=== PATIENT | female | born 1980 | race African-American/Black ===

== ENCOUNTER 2019-09-07 14:38 | Emergency (ER) | payer MEDICAID ==
--- NOTE | 2019-09-07 17:22 | UC ---
Respiratory Complaint HPI - HPI Summary HPI Summary: 38 yo asthmatic with cough for a week, which is her second bout of respiratory illness within a month. Has increased use of albuterol to about 4 x per day for the past 2 days, with persistent hacking cough. - History of Current Complaint Chief Complaint: UCRespiratory Stated Complaint: RESP COMPLAINT Time Seen by Provider: 09/07/19 17:20 Hx Obtained From: Patient Hx Last Menstrual Period: 08/08/19 Onset/Duration: Gradual Onset, Lasting Days - 7 Timing: Intermittent Episodes Severity Initially: Mild Severity Currently: Moderate Pain Intensity: 0 Character: Cough: Productive Aggravating Factors: Exertion, Recumbent Position Alleviating Factors: Bronchodilator Associated Signs And Symptoms: Positive: Dyspnea, Chills, Wheezing, Nasal Congestion - Risk Factors Pulmonary Embolism Risk Factors: Negative Cardiac Risk Factors: Negative Pseudomonas Risk Factors: Negative Tuberculosis Risk Factors: Negative - Allergies/Home Medications Allergies/Adverse Reactions: Allergies Allergy/AdvReac Type Severity Reaction Status Date / Time ketorolac [From Toradol] Allergy Anaphylatic Verified 09/07/19 16:32 Shock Home Medications: Home Medications Albuterol/Ipratropium NEB.ARETHA* [Duoneb (Albuterol 2.5 MG/Ipratropium 0.5 MG)] 1 neb PO Q6HR 09/07/19 [History Confirmed 09/07/19] PMH/Surg Hx/FS Hx/Imm Hx Previously Healthy: Yes Respiratory History: Asthma - Surgical History Surgical History: Yes Surgery Procedure, Year, and Place: 2 c section - Family History Known Family History: Positive: Unknown - does not know her father, Respiratory Disease - son with asthma - Social History Occupation: Employed Full-time - SAHM to 3 sons Lives: With Family Alcohol Use: Rare Substance Use Type: None Smoking Status (MU): Never Smoked Tobacco Review of Systems All Other Systems Reviewed And Are Negative: Yes Constitutional: Positive: Chills, Fatigue Skin: Positive: Negative Eyes: Positive: Negative ENT: Positive: Sore Throat Respiratory: Positive: Shortness Of Breath, Cough Cardiovascular: Negative: Palpitations, Chest Pain Gastrointestinal: Positive: Diarrhea - stools loose at onset of illness. Genitourinary: Positive: Negative Motor: Positive: Negative Neurovascular: Positive: Negative Musculoskeletal: Positive: Negative Neurological: Positive: Negative Psychological: Positive: Negative Is Patient Immunocompromised?: No Physical Exam Triage Information Reviewed: Yes Appearance: Well-Appearing, No Pain Distress Vital Signs: Initial Vital Signs Temp 98.6 F 09/07/19 16:24 Pulse 85 09/07/19 16:24 Resp 16 09/07/19 16:24 BP 116/67 09/07/19 16:24 Pulse Ox 100 09/07/19 16:24 Eye Exam: Normal ENT: Positive: Pharyngeal erythema, TMs normal Neck: Positive: Supple, Nontender, No Lymphadenopathy Respiratory: Positive: No respiratory distress, Decreased breath sounds, Rhonchi - upper lung duarte. Negative: Wheezing Cardiovascular: Positive: RRR, No Murmur Musculoskeletal Exam: Normal Neurological Exam: Normal Psychological Exam: Normal Skin Exam: Normal Respiratory Course/Dx - Course Course Of Treatment: zpack for treatment of bronchitis in a 38 yo woman with a hx of asthma and second hand smoke exposure. - Differential Dx/Diagnosis Differential Diagnosis/HQI/PQRI: Bronchitis, Laryngitis, Lower Resp Infection, Sinusitis Provider Diagnosis: Bronchitis Discharge ED - Sign-Out/Discharge Documenting (check all that apply): Patient Departure All imaging exams completed and their final reports reviewed: No Studies - Discharge Plan Condition: Stable Disposition: HOME Prescriptions: Azithromyxin SKYLER (NF) [Z-Skyler (Zithromax) 250 mg tabs #6] 2 tab PO .TODAY, THEN 1 DAILY #6 tab Patient Education Materials: Acute Bronchitis (ED) Referrals: No Primary Care Phys,NOPCP [Primary Care Provider] - Additional Instructions: You have been prescribed azithromycin for treatment of bronchitis. Please take the full course of medications. Continue use of albuterol as needed for relief of wheezing. You might add long acting dextromethorphan for suppression of cough (over the cournter Delsym). Remember to get a flu shot next week! - Billing Disposition and Condition Condition: STABLE Disposition: Home
== END 2019-09-07 18:05 | disposition home or self-care (01) ==
LOC: UCEAST 14:38
DX: J45.909 Unspecified asthma, uncomplicated (principal); R68.83 Chills (without fever); R53.83 Other fatigue; R19.7 Diarrhea, unspecified; Z88.6 Allergy status to analgesic agent
CPT/HCPCS: 99202; G0463

== ENCOUNTER 2019-10-06 15:38 | Emergency (ER) | payer OTHER ==
--- OUTSIDE RECORDS SUMMARY | 2019-10-06 15:43 | XMS REPORT | Continuity of Care Document ---
:1980 External Reference #:[id number] Author Name Brittaney Bailon M.D., FACP (transmitted by agent of provider Leslie Santacruz) Address [address] [place] [address] [place] [address] Problems Description No Information Available Social History Type Date Description Comments Sex Unknown Tobacco Use Start: Unknown End: Unknown Patient is a former smoker Smoking Status Reviewed: 09/24/19 Patient is a former smoker Allergies, Adverse Reactions, Alerts Active Allergies Reaction Severity Comments Date Ketorolac Tromethamine 09/24/2019 Aspirin 09/24/2019 Latex 09/24/2019 Medications Active Medications SIG Qnty Indications Ordering Provider Date Albuterol Sulfate HFA 1 puff as needed Unknown 108(90Base) mcg/Act Aerosol Amoxicillin 1 by mouth every Unknown 875mg Tablets 12 hs B-12 1 by mouth every Unknown 1000mcg Tablets ER day Immunizations CPT Code Status Date Vaccine Lot # [id number] Given 09/24/2019 Tdap - Tetanus/Diptheria/Acellular Pertussis [id number] Vital Signs Date Vital Result Comment 09/24/2019 8:48am Height 65 inches 5'5" Weight 211.00 lb Heart Rate 75 /min BP Systolic Sitting 117 mmHg Rue lg cuff BP Diastolic Sitting 77 mmHg Rue lg cuff O2 % BldC Oximetry 98 % BMI (Body Mass Index) 35.1 kg/m2 Results Description No Information Available Procedures Description No Information Available Medical Devices Description No Information Available Encounters Description No Information Available Assessments Date Code Description Provider 09/24/2019 Z00.00 Encounter for general adult medical Brittaney Bailon M.D., FACP examination without abnormal findings 09/24/2019 N92.1 Excessive and frequent menstruation with Brittaney Bailon M.D. , [facility] irregular cycle 09/24/2019 Z13.220 Encounter for screening for lipoid Brittaney Bailon M.D., FACP disorders 09/24/2019 Z23 Encounter for immunization Brittaney Bailon M.D., [facility] Plan of Treatment 09/24/2019 - Brittaney Bailon M.D., FACPZ00.00 Encounter for general adult medical examination without abnormal findingsComments:GENERAL PHYSICAL EXAM: You are up to date with your vaccinations. I do not have a record of your last tetanus/ pertussis booster. You had a booster today.I understand that you received a flu shot this year.I think that it is a good idea to have an Advance Directive on file here.We reviewed healthy lifestyle practices, specifically, strategies to maintain a durable ideal body weight and an aerobic exercise routine.N92.1 Excessive and frequent menstruation with irregular cycleComments:ABNORMAL VAGINAL BLEEDING:As we discussed, there are many possible reasons for this to occur.I do not think it is related to the tubal ligation. I would like to exclude a thyroid issue. There is a condition called Polycystic Ovarian Syndrome that can be associated with irregular periods and glucose intolerance.Z13.220 Encounter for screening for lipoid disordersComments: CHOLESTEROL SCREENING:It is time to check a fasting lipid profile and a glucose level.Z23 Encounter for immunization Functional Status Description No Information Available Mental Status Description No Information Available Referrals Description No Information Available
[2019-10-06 15:49] VITALS: BP 126/80
[2019-10-06] MEDS ORDERED: Ondansetron ODT TAB* 4 MG PO ONE (15:55)
--- NOTE | 2019-10-06 16:18 | UC ---
Throat Pain/Nasal Johnathan HPI - HPI Summary HPI Summary: started [address], chills, fatigue, has persisted and sore throat worse today, especially R side. also developed Rear pain today. has taken no meds thus far - History of Current Complaint Chief Complaint: UCGeneralIllness Stated Complaint: EAR ACHE, AND NAUSEA WITH VOMITING Time Seen by Provider: 10/06/19 15:58 Hx Obtained From: Patient Hx Last Menstrual Period: 10/01/19 ?: No Onset/Duration: Sudden Onset Severity: Severe Pain Intensity: 9 Cough: None Associated Signs & Symptoms: Positive: Fever, Vomiting - x 1 episode. Negative : Sinus Discomfort, Nasal Discharge - Allergies/Home Medications Allergies/Adverse Reactions: Allergies Allergy/AdvReac Type Severity Reaction Status Date / Time ketorolac [From Toradol] Allergy Anaphylatic Verified 10/06/19 15:49 Shock latex Allergy Swelling Verified 10/06/19 15:49 Home Medications: Home Medications Biotin 1,000 mcg PO 10/06/19 [History] Folic Acid TAB* [Folvite TAB*] 1 mg PO DAILY 10/06/19 [History Confirmed ] Pnv No.95/Ferrous Fum/Folic AC [ Vitamin Tablet] 1 tab PO DAILY [History Confirmed 10/06/19] PMH/Surg Hx/FS Hx/Imm Hx Previously Healthy: Yes - Surgical History Surgical History: Yes Surgery Procedure, Year, and Place: 2 c section - Family History Known Family History: Positive: Unknown - does not know her father, Respiratory Disease - son with asthma - Social History Occupation: Unemployed Lives: With Family Alcohol Use: Rare Substance Use Type: None Smoking Status (MU): Never Smoked Tobacco - Immunization History Most Recent Influenza Vaccination: none this year Vaccination Up to Date: No Review of Systems All Other Systems Reviewed And Are Negative: Yes Constitutional: Positive: Fever, Chills, Fatigue Skin: Positive: Negative. Negative: Rash Eyes: Positive: Negative ENT: Positive: Sore Throat, Ear Ache Respiratory: Positive: Negative Cardiovascular: Positive: Negative. Negative: Chest Pain Gastrointestinal: Positive: Vomiting, Nausea Genitourinary: Positive: Negative Musculoskeletal: Positive: Negative Neurological: Positive: Negative Psychological: Positive: Negative Is Patient Immunocompromised?: No Physical Exam Triage Information Reviewed: Yes Appearance: Well-Appearing, No Pain Distress, Obese Vital Signs: Initial Vital Signs Temp 99.4 F 10/06/19 15:44 Pulse 104 10/06/19 15:44 Resp 18 10/06/19 15:44 BP 126/80 10/06/19 15:44 Pulse Ox 99 10/06/19 15:44 Vital Signs Reviewed: Yes Eye Exam: Normal Eyes: Positive: Conjunctiva Clear ENT: Positive: Pharyngeal erythema, Tonsillar swelling, Tonsillar exudate Respiratory Exam: Normal Respiratory: Positive: Lungs clear Cardiovascular Exam: Normal Cardiovascular: Positive: RRR Abdominal Exam: Normal Abdomen Description: Positive: Nontender, No Organomegaly, Soft Bowel Sounds: Positive: Present Neurological Exam: Normal Psychological Exam: Normal Skin Exam: Normal Throat Pain/Nasal Course/Dx - Differential Dx/Diagnosis Differential Diagnosis/HQI/PQRI: Influenza, Otitis Media, Tonsillitis, URI Provider Diagnosis: Acute infective tonsillitis Discharge ED - Sign-Out/Discharge Documenting (check all that apply): Patient Departure All imaging exams completed and their final reports reviewed: No Studies - Discharge Plan Condition: Stable Disposition: HOME Prescriptions: Azithromycin TAB* [Zithromax TAB (Z-SKYLER) 250 mg #6 tabs] 2 tab PO .TODAY, THEN 1 DAILY #1 skyler Patient Education Materials: Tonsillitis (ED) Referrals: Brittaney Bailon MD [Primary Care Provider] - 3 Days (if no better ) Additional Instructions: drink plenty of fluids and rest take antibiotic as directed use ibuprofen 600mg every 6 hours for pain and fever as needed - Billing Disposition and Condition Condition: STABLE Disposition: Home
[2019-10-06 16:39] LABS: Influenza A Molecular NEGATIVE (Negative); Influenza B Molecular NEGATIVE (Negative)
== END 2019-10-06 17:01 | disposition home or self-care (01) ==
LOC: UCEAST 15:38
DX: J03.90 Acute tonsillitis, unspecified (principal); H92.01 Otalgia, right ear; R11.2 Nausea with vomiting, unspecified; Z91.040 Latex allergy status; Z88.6 Allergy status to analgesic agent
CPT/HCPCS: 87651; 99212; A9270-GY; G0463